=== PATIENT | male | born 1990 ===

== ENCOUNTER 2017-03-04 15:31 | Emergency (ER) | payer SELFPAY ==
--- NOTE | 2017-03-04 16:22 | UC ---
Dental HPI - HPI Summary HPI Summary: swelling right cheek---has had parotid obstruction/stone in the past--feels similar---no fevers chills or night sweats - History of Current Complaint Chief Complaint: UCSkin Stated Complaint: SOFT TISSUE Time Seen by Provider: 03/04/17 16:11 Hx Obtained From: Patient Onset/Duration: Gradual Onset, Lasting Days - 2, Still Present Severity: Mild - Allergies/Home Medications Allergies/Adverse Reactions: Allergies Allergy/AdvReac Type Severity Reaction Status Date / Time No Known Allergies Allergy Verified 03/04/17 15:48 Home Medications: Home Medications Albuterol HFA INHALER* [Ventolin HFA Inhaler*] 2 puff INH Q6H PRN 03/04/17 [ History Confirmed 03/04/17] Ibuprofen [Ibuprofen 200 MG] 800 mg PO ONCE 03/04/17 [History Confirmed 03/04/17 ] PMH/Surg Hx/FS Hx/Imm Hx Previously Healthy: No Respiratory History: Asthma - Surgical History Surgical History: None - Family History Known Family History: Positive: None - Social History Occupation: Unemployed Lives: With Family Alcohol Use: None Substance Use Type: None Smoking Status (MU): Heavy Every Day Tobacco Smoker Amount Used/How Often: 1 can / 3 days Review of Systems Constitutional: Negative Skin: Negative Eyes: Negative ENT: Negative, Other - swelling right cheek Respiratory: Negative Cardiovascular: Negative Gastrointestinal: Negative Genitourinary: Negative Motor: Negative Neurovascular: Negative Musculoskeletal: Negative Neurological: Negative Psychological: Negative Is Patient Immunocompromised?: No All Other Systems Reviewed And Are Negative: Yes Physical Exam Triage Information Reviewed: Yes Appearance: Well-Appearing, No Pain Distress, Well-Nourished Vital Signs: Initial Vital Signs Temp 100.4 F 03/04/17 15:54 Pulse 78 03/04/17 15:54 Resp 18 03/04/17 15:54 BP 127/83 03/04/17 15:54 Pulse Ox 100 03/04/17 15:54 Vital Signs Reviewed: Yes Eye Exam: Normal Eyes: Positive: Conjunctiva Clear ENT Exam: Normal ENT: Positive: Normal ENT inspection, Hearing grossly normal, Pharynx normal, Uvula midline. Negative: Nasal congestion, Nasal drainage, Tonsillar swelling, Tonsillar exudate, Trismus, Muffled voice, Hoarse voice, Dental tenderness, Sinus tenderness Dental Exam: Normal Neck exam: Normal Neck: Positive: Supple, Nontender, No Lymphadenopathy Respiratory Exam: Normal Respiratory: Positive: Chest non-tender, Lungs clear, Normal breath sounds, No respiratory distress, No accessory muscle use Cardiovascular Exam: Normal Cardiovascular: Positive: RRR, No Murmur, Pulses Normal, Brisk Capillary Refill Musculoskeletal Exam: Normal Musculoskeletal: Positive: Strength Intact, ROM Intact, No Edema Neurological Exam: Normal Neurological: Positive: Alert, Muscle Tone Normal Psychological Exam: Normal Skin Exam: Normal Dental Complaint Course/Dx - Course Course Of Treatment: warm compress, lemon drops, clindamycin, refill MDI, Follow with pcp - Differential Dx/Diagnosis Provider Diagnoses: Parotid Swelling, mild intermittent asthma Discharge - Discharge Plan Condition: Stable Disposition: HOME Prescriptions: Albuterol HFA INHALER* [Ventolin HFA Inhaler*] 2 puff INH Q6H PRN #1 mdi PRN Reason: cough/wheeze Albuterol HFA INHALER* [Ventolin HFA Inhaler*] 2 puff INH Q6H PRN #1 mdi PRN Reason: cough/wheeze Clindamycin Cap(NF) [Clindamycin Cap 300 mg Cap(NF)] 300 mg PO Q6H #40 cap Clindamycin Cap(NF) [Clindamycin Cap 300 mg Cap(NF)] 300 mg PO Q6H #40 cap Patient Education Materials: Parotid Duct Obstruction (ED) Referrals: [facility] [Provider Group] - If Needed [facility] [place] [facility] REFERRAL [Outside] - If Needed
== END 2017-03-04 16:39 | disposition home or self-care (01) ==
LOC: UCEAST 15:31
DX: K11.8 Other diseases of salivary glands (principal); J45.20 Mild intermittent asthma, uncomplicated; F17.220 Nicotine dependence, chewing tobacco, uncomplicated
CPT/HCPCS: 99202; G0463

== ENCOUNTER 2017-05-10 17:37 | Emergency (ER) | payer BC ==
[2017-05-10 17:45] VITALS: BP 145/97
[2017-05-10] MEDS ORDERED: Albuterol/Ipratropium NEB.SOL* Albuterol 2.5 MG/Ipratropium 0.5 MG 3 ML INH ONE (18:08)
--- NOTE | 2017-05-10 18:38 | UC ---
Respiratory Complaint HPI - HPI Summary HPI Summary: Pt has asthma, used to take advair for it and meds for seasonal allergies. Ran out of insurance and so he hasn't had anything beyond albuterol all winter. Reports increasing wheezing and SOB for months, is waking up every night in the middle of the night with sx. Last dose of albuterol was 0200 today. Also has allergies to pet dander and dust that make his asthma flare. Took levocetirizine and montelukast in the past, felt like they didn't help. - History of Current Complaint Chief Complaint: UCRespiratory Stated Complaint: DIFFICULTY BREATHING,ASTHMA Time Seen by Provider: 05/10/17 17:58 Hx Obtained From: Patient Onset/Duration: Gradual Onset, Lasting Weeks, Still Present Timing: Constant Severity Initially: Moderate Severity Currently: Moderate Pain Intensity: 0 Character: Cough: Nonproductive Aggravating Factors: Deep Breaths, Recumbent Position Alleviating Factors: Bronchodilator Associated Signs And Symptoms: Positive: Dyspnea, Wheezing - Allergies/Home Medications Allergies/Adverse Reactions: Allergies Allergy/AdvReac Type Severity Reaction Status Date / Time animal dander Allergy Swelling Verified 05/10/17 17:46 Of Face,Lips,& Throat pineapple Allergy Swelling Verified 05/10/17 17:46 Of Face,Lips,& Throat dust Allergy Swelling Uncoded 05/10/17 17:46 Of Face,Lips,& Throat PMH/Surg Hx/FS Hx/Imm Hx Respiratory History: Asthma Other Respiratory History: seasonal allergies - Surgical History Surgical History: None - Family History Known Family History: Positive: None - Social History Lives: With Family Alcohol Use: None Substance Use Type: None Smoking Status (MU): Former Smoker Amount Used/How Often: 1 can / 3 days Review of Systems Constitutional: Negative Skin: Negative Eyes: Negative ENT: Negative Respiratory: Shortness Of Breath, Cough Cardiovascular: Negative Gastrointestinal: Negative Genitourinary: Negative Motor: Negative Neurovascular: Negative Musculoskeletal: Negative Neurological: Negative Psychological: Negative Is Patient Immunocompromised?: No All Other Systems Reviewed And Are Negative: Yes Physical Exam Triage Information Reviewed: Yes Appearance: Well-Nourished, Other: - mild respiratory distress Vital Signs: Initial Vital Signs Temp 99.3 F 05/10/17 17:39 Pulse 82 05/10/17 17:39 Resp 18 05/10/17 17:39 BP 145/97 05/10/17 17:39 Pulse Ox 100 05/10/17 17:39 Vital Signs Reviewed: Yes Eye Exam: Normal Eyes: Positive: Conjunctiva Clear ENT Exam: Normal ENT: Positive: Normal ENT inspection, Hearing grossly normal, Pharynx normal, TMs normal Dental Exam: Normal Neck exam: Normal Neck: Positive: Supple, Nontender, No Lymphadenopathy Respiratory: Positive: Accessory muscle use, Wheezing - marked, diffuse, Other: - poor air movement Cardiovascular Exam: Normal Cardiovascular: Positive: RRR Musculoskeletal Exam: Normal Musculoskeletal: Positive: Strength Intact, ROM Intact Neurological Exam: Normal Psychological Exam: Normal Skin Exam: Normal UC Diagnostic Evaluation - Laboratory O2 Sat by Pulse Oximetry: 100 Re-Evaluation - Re-Evaluation First Eval Re-Evaluation Time: 18:35 Change: Improved - Markedly improved air movement, wheezing resolved Respiratory Course/Dx - Differential Dx/Diagnosis Provider Diagnoses: asthma exacerbation. allergic rhinitis Discharge - Discharge Plan Condition: Stable Disposition: HOME Prescriptions: Albuterol HFA INHALER* [Ventolin HFA Inhaler*] 2 puff INH Q6H PRN #1 mdi PRN Reason: cough/wheeze Cetirizine* [ZyrTEC 10 MG TAB*] 10 mg PO DAILY #30 tab Fluticasone-Salmeterol 250-50* [Advair Diskus 250-50*] 1 puff INH BID #1 diskus Mometasone NASAL (NF) [Nasonex (NF)] 2 spray BOTH NARES DAILY #1 nasal.spr predniSONE TAB* [Deltasone TAB*] 50 mg PO DAILY #4 tab Patient Education Materials: Asthma (ED), Allergic Rhinitis (ED) Referrals: No Primary Care Phys,NOPCP [Primary Care Provider] - [facility] [Provider Group] [facility] [place] [facility] [Outside] - 1 Week Additional Instructions: Please try to follow up with [facility] or a primary care provider within about a week. If you have tightness in the chest that your inhaler does not help, or if you have severe symptoms, please call 911.
== END 2017-05-10 18:56 | disposition home or self-care (01) ==
LOC: UCEAST 17:53
DX: J45.901 Unspecified asthma with (acute) exacerbation (principal); Z87.891 Personal history of nicotine dependence
CPT/HCPCS: 99212; A9270-GY; G0463